=== PATIENT | male | born 1945 | race Caucasian/White ===

== ENCOUNTER → 2017-12-11 | Outpatient (CLI) | payer MEDICARE, BC ==
[~2017-12-11] MED LIST: Augmentin 875-1 EACH PO; BENA20 PO; CYCL10 PO; Cymbalta60 MG; ENABLEX PO; ESZO3 PO; HYDACE10B PO; INSUASPI SC; INSULANI SC; INSULISPEN SC; LEVFLO500 PO; ONDA4ODT MM; OXYACE7.5T PO; OXYC20ER PO; TAMS.4ER PO
== END | disposition home or self-care (01) ==
LOC: LAB 08:00 → LAB SHORT 08:00
PROVIDERS: Family Medicine
DX: E10.9 Type 1 diabetes mellitus without complications (principal)
CPT/HCPCS: 81050; 84156

== ENCOUNTER 2018-08-21 08:35 | Day surgery (SDC) | payer MEDICARE, BC ==
[2018-08-21 11:01] LABS: Performing Lab VERACYTE; Test Name FNA
== END 2018-08-21 12:00 | disposition home or self-care (01) ==
LOC: US 08:35
PROVIDERS: Family Medicine
DX: E04.1 Nontoxic single thyroid nodule (principal)
CPT/HCPCS: 10005

== ENCOUNTER 2019-04-12 22:40 | Inpatient (IN) | payer MEDICARE, BC ==
[~2019-04-12] VITALS: Ht 182.9 cm; Wt 136.0 kg
[~2019-04-12 22:40] MED LIST changes: +ASPI325 PO; +CHLO25B PO; +CLOP75 PO; -Cymbalta60 MG; +Cymbalta60 MG PO; +DARIFENACIN ER15 MG PO; +Norco 10-325 T1 EACH PO; +TRESIBA FL200 UNIT/1 SC; +TRULICITY1.5 MG/0.5 SC; +VITAMIN D-32000 UNIT PO
[2019-04-12 23:12] LABS: BASOPHILS ABSOLUTE AUTO 0.08 K/mm3 (0.00-0.23); BASOPHILS PERCENT AUTO 1 % (0-2); EOSINOPHILS ABSOLUTE AUTO 0.15 K/mm3 (0.00-0.68); EOSINOPHILS PERCENT AUTO 1 % (0-6); Hematocrit 45.3 % (37.0-53.0); Hemoglobin 14.9 g/dL (13.5-17.5); IMMATURE GRAN ABSOLUTE AUTO 0.15 K/mm3 (0.00-0.10); IMMATURE GRAN PERCENT AUTO 1 % (0-1); LYMPHOCYTES ABSOLUTE AUTO 1.48 K/mm3 (0.84-5.20); LYMPHOCYTES PERCENT AUTO 12 % (21-46); MONOCYTES ABSOLUTE AUTO 0.62 K/mm3 (0.16-1.47); MONOCYTES PERCENT AUTO 5 % (4-13); Mean Corpuscular HGB 28.8 pg (26.0-34.0); Mean Corpuscular HGB Conc 32.9 g/dL (31.5-36.5); Mean Corpuscular Volume 88 fL (80-100); Mean Platelet Volume 9.8 fL (9.1-12.4); NEUTROPHILS ABSOLUTE AUTO 10.27 K/mm3 (1.96-9.15); NEUTROPHILS PERCENT AUTO 81 % (41-73); Platelet Count 276 K/mm3 (150-400); RDW Coefficient Variation 13.2 % (11.7-14.2); RDW Standard Deviation 42.6 fL (35.1-46.3); Red Blood Cell Count 5.17 M/mm3 (4.30-5.90); White Blood Cell Count 12.75 K/mm3 (4.00-11.30)
[2019-04-12 23:37] LABS: Albumin, Blood 3.1 g/dL (3.4-5.0); Albumin/Globulin Ratio 0.8 (0.8-1.8); Bilirubin, Total 0.5 mg/dL (0.1-1.0); Bun/Creatinine Ratio 18.6 (12.0-20.0); Calcium, Blood 8.6 mg/dL (8.5-10.1); Creatinine, Blood 2.1 mg/dL (0.60-1.20); Globulin, Blood 4.1 g/dL (2.2-4.0); Potassium, Blood 4.6 mmol/L (3.5-5.5); Total Protein, Blood 7.2 g/dL (6.4-8.2); Troponin I 0.061 ng/mL (0.000-0.040)
--- NOTE | 2019-04-13 04:09 | NUR ---
SHIFT SUMMARY PATIENT WAS ADMITTED TO ROOM 338 AT 0109 FOR ISCHEMIC STROKE. HE IS ALERT AND ORIENTED WITH A PLEASANT DISPOSITION. HAS RIGHT SIDED WEAKNESS. SLEEPING WITH HOSPITAL PROVIDED CPAP WITH 2 LITERS OF OXYGEN. PATIENT HAS BEEN PLACED ON TELE. IV IN LEFT AC IS PATENT AND FLUSHES WITH NO ISSUES. BED IN LOWEST POSITION WITH WHEELS LOCKED. BED SIDE TABLE AND CALL LIGHT PLACED WITHIN REACH OF PATIENT'S NON-AFFECTED ARM. REPORT GIVEN TO ONCOMING RN.
[2019-04-13 07:07] LABS: Hematocrit 40.8 % (37.0-53.0); Hemoglobin 13.4 g/dL (13.5-17.5); Mean Corpuscular HGB 28.5 pg (26.0-34.0); Mean Corpuscular HGB Conc 32.8 g/dL (31.5-36.5); Mean Corpuscular Volume 87 fL (80-100); Mean Platelet Volume 9.9 fL (9.1-12.4); Platelet Count 252 K/mm3 (150-400); RDW Coefficient Variation 13.3 % (11.7-14.2); RDW Standard Deviation 42.1 fL (35.1-46.3); White Blood Cell Count 11.21 K/mm3 (4.00-11.30)
[2019-04-13 07:27] LABS: Troponin I 0.087 ng/mL (0.000-0.040)
[2019-04-13 07:29] LABS: Albumin, Blood 2.6 g/dL (3.4-5.0); Albumin/Globulin Ratio 0.7 (0.8-1.8); Bilirubin, Total 0.5 mg/dL (0.1-1.0); Bun/Creatinine Ratio 17.6 (12.0-20.0); Calcium, Blood 8.3 mg/dL (8.5-10.1); Creatinine, Blood 2.05 mg/dL (0.60-1.20); Globulin, Blood 3.5 g/dL (2.2-4.0); Potassium, Blood 4.4 mmol/L (3.5-5.5); Total Protein, Blood 6.1 g/dL (6.4-8.2)
[2019-04-13 07:40] LABS: Creatine Kinase MB 6.4 ng/mL (0.0-3.6); Creatine Kinase MB Index 1.9 (0.0-4.0)
--- NOTE | 2019-04-13 16:03 | NUR ---
ALERT. ORIENTED. COOPERATIVE. TELE ON. UNLABORED RESPIRATIONS. IV ROTATED AND IS PATENT. IS RIGHT SIDE DOMINANT. HAS DIFFICULTY HOLDING UTENSIL IN RT HAND. RT HAND DRIFT W/RT ARM WEAKER THAN LEFT. RT PUSH/PULL LOWER EXTREMITY WEAKER THAN LEFT. FACE SYMMETRICAL W/NO OBVIOUS DROOP. NO GARBLED OR SLURRED SPEECH. HAD MRI. IS 2 PERSON ASSIST WHEN GETTING UP HE CAN NOT CONTROL RT SIDE.TELE IN PLACE. BED IN LOW POSITION. CALL LIGHT AND PERSONAL BELONGINGS WITHIN REACH. [facility]
[2019-04-13 16:56] LABS: Troponin I 0.075 ng/mL (0.000-0.040)
[2019-04-13 17:12] LABS: Creatine Kinase MB 6.9 ng/mL (0.0-3.6)
[2019-04-13 17:13] LABS: Creatine Kinase MB Index 1.3 (0.0-4.0)
--- NOTE | 2019-04-14 03:20 | NUR ---
Pt with CVA and right sided weakness sleeping with few interruptions. Voiced no feeling in right side. Right side continues to display weakness as compared to that of the left. C-pap at noct, sats in the 's. Med tele sinus with BBB. Affect cheerful when spoken to. Call light in reach.
--- NOTE | 2019-04-14 03:44 | NUR ---
certified composites technician called re HR in the 50's, pt assessed. Asymptomatic. Pt stated HR 57, "thats normal for me". Will continue to monitor.
--- NOTE | 2019-04-14 15:25 | NUR ---
ALERT. ORIENTED. MAX 2 PERSON ASSIST FOR AMBULATION. TIRES EASILY. NEEDS LOTS OF ENCOURAGEMENT. GIVEN COBAN WRAPPED WASHCLOTH TO SQUEEZE WITH RT HAND. UP IN CHAIR FOR MEALS. BED BATH IN W/C W/PATIENT ASSISTANCE. MOVED TO ROOM WITH A SMOOTH FLOOR IN THE SHOWER SO HE CAN START TAKING SHOWERS. TELE ON. N/T W/WEAKNESS RT SIDE. BED IN LOW POSITION. CALL LIGHT AND PERSONAL ITEMS WITHIN REACH OF LEFT SIDE. [facility]
--- NOTE | 2019-04-15 03:42 | NUR ---
Remains alert and oriented. Right side continues to be weaker than that of left side. but seems less weaker than noted 24 hrs ago. Denies pain when asked. Has been resting quietly at intervals this shift. Call light in reach. Will continue to monitor.
--- NOTE | 2019-04-15 15:20 | NUR ---
HE HAS BEEN ON THE PHONE ON AND OFF TODAY. HE HAS EATEN WELL. WE OPEN AND SET THINGS UP FOR HIM BECAUSE OF THE DIFFICULTY WITH DEXTERITY IN HIS RH. PT HAS WORKED WITH HIM. SHE SAID HE IS IMPULSIVE. ELISA BUTLER HELPED HIM WITH HIS CHRONIC PAINS IN HIS BACK, R HIP AND BOTH KNEES. MSG LEFT WITH HIS SPA ASSISTANT MANAGER THAT HE PREFERS OVER [place].
--- NOTE | 2019-04-15 18:08 | NUR ---
HE HAS VISITORS AND PHONE CALLS. HIS FAMILY BROUGHT HIM IN [facility]. NO CHANGE IN HIS NEURO ASSESSMENT THROUGHOUT THE DAY. HE WORKED WITH PT AND OT. HE DANGLED AND STOOD. NO COMPLAINTS EXCEPT THAT HE HAD A STROKE. HE REALIZES THIS IS A LIFE CHANGER FOR NOW.
--- NOTE | 2019-04-16 01:37 | NUR ---
Physical activity encouraged to increase pt ability with right side weakness. Noted some increased strength of right hand with director patient accounting at HS. Resting quietly with few interruptions since HS. C-Pap in use. Call light in reach.
--- NOTE | 2019-04-16 04:21 | NUR ---
BP 185/84. PRN of Apresoline parameters state to be given if SBP is 200 or more. Asymptomatic. Will continue to monitor. Call light in reach.
[2019-04-16 05:24] LABS: Hematocrit 39.8 % (37.0-53.0); Hemoglobin 12.8 g/dL (13.5-17.5); Mean Corpuscular HGB 28.7 pg (26.0-34.0); Mean Corpuscular HGB Conc 32.2 g/dL (31.5-36.5); Mean Corpuscular Volume 89 fL (80-100); Mean Platelet Volume 10.2 fL (9.1-12.4); Platelet Count 214 K/mm3 (150-400); RDW Standard Deviation 42.6 fL (35.1-46.3); Red Blood Cell Count 4.46 M/mm3 (4.30-5.90); White Blood Cell Count 8.69 K/mm3 (4.00-11.30)
[2019-04-16 05:46] LABS: Bun/Creatinine Ratio 16.7 (12.0-20.0); Calcium, Blood 8.1 mg/dL (8.5-10.1); Creatinine, Blood 3.84 mg/dL (0.60-1.20); Potassium, Blood 5.8 mmol/L (3.5-5.5)
[2019-04-16 14:31] LABS: Albumin, Blood 2.8 g/dL (3.4-5.0); Anion Gap 7 mmol/L (6-16); Blood Urea Nitrogen 68 mg/dL (8-24); Bun/Creatinine Ratio 22.5 (12.0-20.0); CO2, Blood 24 mmol/L (21-32); Calcium, Blood 8.3 mg/dL (8.5-10.1); Chloride, Blood 107 mmol/L (98-108); Creatinine, Blood 3.02 mg/dL (0.60-1.20); Glomerular Filtration Rate 22 (60-); Glucose, Blood 237 mg/dL (70-99); Phosphorus, Blood 4.4 mg/dL (2.5-4.9); Potassium, Blood 5.8 mmol/L (3.5-5.5); Sodium, Blood 138 mmol/L (136-145)
--- NOTE | 2019-04-16 17:43 | NUR ---
PATIENT A/OX4, UP WITH 2 ASSIST TO W/C. R SIDED WEAKNESS, NO DROOP OR CHANGES IN SPEECH. K+ 5.8 TODAY, PATIENT GIVEN KAYEXALATE. B/P MEDICATIONS ADJUSTED TODAY. PATIENT ON TELE, SR WITH A BBB IN THE 60'S. CPAP AT [facility], OTHERWISE RA. PATIENT USING A URINAL TO VOID. NORCO SCHEDULED BID, AND PATIENT REPORTS GOOD PAIN CONTROL. ACHS BLOOD SUGARS, PATIENT TOLERATING ADA DIET. CALM AND COOPERATIVE WITH CARE, CALLS APPROPRIATELY FOR ASSISTANCE. PLAN IS TO D/C TO [facility], WEEKEND D/C PACKET ON CHART.
--- NOTE | 2019-04-16 22:43 | NUR ---
MEDICATION: HS DOSE OF LOPRESSOR WAS HELD DUE TO HR OF 56, REPORTED BY PCU BANKING SERVICES CLERK. BP IS 177/76, NO COMPLAINTS OF HEADACHE OR BLURRED VISION. PATIENT IS ASYMPTOMATIC.
[2019-04-17 05:20] LABS: Albumin, Blood 2.6 g/dL (3.4-5.0); Anion Gap 7 mmol/L (6-16); Blood Urea Nitrogen 77 mg/dL (8-24); Bun/Creatinine Ratio 23.6 (12.0-20.0); CHOL/HDL RATIO 3.9; CO2, Blood 23 mmol/L (21-32); Calcium, Blood 8.1 mg/dL (8.5-10.1); Chloride, Blood 111 mmol/L (98-108); Cholesterol 126 mg/dL (50-200); Creatinine, Blood 3.26 mg/dL (0.60-1.20); Glomerular Filtration Rate 20 (60-); Glucose, Blood 174 mg/dL (70-99); HDL Cholesterol 32 mg/dL (>39); LDL/HDL RATIO 1.5; Low Density Lipoprotein Chol 47 mg/dL (0-110); Phosphorus, Blood 4.6 mg/dL (2.5-4.9); Potassium, Blood 5.4 mmol/L (3.5-5.5); Sodium, Blood 141 mmol/L (136-145); Triglycerides 236 mg/dL (30-160); Very Low Density Lipoprot Chol 47 mg/dL (6-32)
--- NOTE | 2019-04-17 07:16 | NUR ---
SHIFT SUMMARY: PATIENT IS A&OX4, UP TO THE BATHROOM WITH A HEAVY ASSIST OF TWO, GAIT BELT& WALKER TO STAND AND PIVOT TO THE WHEELCHAIR. PATIENT HAD A LARGE BM IN BATHROOM. BP IS ELEVATED THIS AM 200/83 WITH PULSE OF 52, PATIENT WAS BRADICARDIC ALL NIGHT, PATIENT IS ASYMPTOMATIC. DR NOLAN WAS NOTIFIED OF BP AND ORDER TO GIVE AM BP MEDS NOW, HYDRALAZINE AND NORVASC WERE GIVEN. PATIENT IS COMPLIANT WITH CPAP DURING SLEEP, BED ALSRM WAS ON FOR SAFETY.
--- NOTE | 2019-04-17 18:29 | NUR ---
PT AOX4 AND COOPERATIVE OF ALL CARE. PT HAS BEEN UP FOR SOME MEALS AND IS A HEAVY TWO PERSON TRANSFER DUE TO L SIDED WEAKNESS. PT HAS DENIES PAIN NO DISTRESS NOTED.
--- NOTE | 2019-04-18 06:37 | NUR ---
SHIFT SUMMARY: BP CONTINUES TO BE ELEVATED BUT STABLE, SEE VS CHARTING. PATIENT REMAINS ASYMPTOMATIC. RIGHT SIDED WEAKNESS PERSISTS. CHRONIC PAIN IS WELL CONTROLED WITH HYDROCODONE. PATIENT REPORTS NOT SLEEPING WELL THIS SHIFT.
[2019-04-18 08:48] LABS: Albumin, Blood 2.9 g/dL (3.4-5.0); Anion Gap 5 mmol/L (6-16); Blood Urea Nitrogen 76 mg/dL (8-24); Bun/Creatinine Ratio 27.2 (12.0-20.0); CO2, Blood 28 mmol/L (21-32); Calcium, Blood 8.6 mg/dL (8.5-10.1); Chloride, Blood 108 mmol/L (98-108); Creatinine, Blood 2.79 mg/dL (0.60-1.20); Glomerular Filtration Rate 24 (60-); Glucose, Blood 192 mg/dL (70-99); Phosphorus, Blood 4.2 mg/dL (2.5-4.9); Potassium, Blood 5.3 mmol/L (3.5-5.5); Sodium, Blood 141 mmol/L (136-145)
--- NOTE | 2019-04-18 16:44 | NUR ---
PT HAD VITALS RECHECKED AT 1530 BP WAS 174/73 P 63.
--- NOTE | 2019-04-18 19:06 | NUR ---
NOTIFIED DR ROBLES 171 OF PT'S BP STAYING HIGH. PT HAD BP AT 1530 TAKEN IN ROOM OF 174/73 HR 63. THEN 1618 PT RECIEVED HYDRALAZINE AND BP RECHECKED AT 1708. BP WAS 184/[address] ROBLES SAID TO MONITOR PT FOR NOW ANOTHER DOSE OF HYDRALAZINE WAS DUE AT 2100. [facility] NURSE MADE AWARE.
[2019-04-19 07:34] LABS: Albumin, Blood 2.7 g/dL (3.4-5.0); Anion Gap 4 mmol/L (6-16); Blood Urea Nitrogen 72 mg/dL (8-24); Bun/Creatinine Ratio 28.9 (12.0-20.0); CO2, Blood 28 mmol/L (21-32); Calcium, Blood 8.5 mg/dL (8.5-10.1); Chloride, Blood 108 mmol/L (98-108); Creatinine, Blood 2.49 mg/dL (0.60-1.20); Glomerular Filtration Rate 27 (60-); Glucose, Blood 193 mg/dL (70-99); Phosphorus, Blood 4.7 mg/dL (2.5-4.9); Sodium, Blood 140 mmol/L (136-145)
--- NOTE | 2019-04-19 07:38 | NUR ---
SHIFT SUMMARY: PATIENT CONTINUES TO HAVE RIGHT SIDED WEAKNESS, UPPER AND LOWER EXTREMITIES. CAN AT TIMES BECOME FRUSTRATED WITH LIMITATIONS IN MOBILITY. BP IS ELVATED BUT STABLE, PATIENT IS ASYMPTOMATIC. BLOOD GLUCOSE WAS 275 AT HS AND PATIENT WAS COVERED PER SCALE. NO EVENTS ON TELEMETRY THIS SHIFT.
[2019-04-19] MEDS ORDERED: AMLO10 PO (09:18)
[2019-04-19] MEDS ORDERED: Lipitor20 MG PO (09:19)
[2019-04-19] MEDS ORDERED: GUAI600T33 PO (09:19)
[2019-04-19] MEDS ORDERED: CLARITIN10 MG PO (09:20)
[2019-04-19] MEDS ORDERED: LOSA25 PO (09:20)
[2019-04-19] MEDS ORDERED: HYDRA25 PO (09:20)
[2019-04-19] MEDS ORDERED: Pedi-Dri 100,0060 GM TOP (09:21)
[2019-04-19] MEDS ORDERED: OCEAN104 ML (09:23)
[2019-04-19] MEDS ORDERED: DOCU100 PO (09:23)
--- NOTE | 2019-04-19 13:33 | NUR ---
PT TRANSFERED TO [facility] AT 1330 VIA WHEELCHAIR. NO DISTRESS NOTED. LAST BP WAS 156/66 HR 60 MUCH IMPROVED COMPARED TO HIS PRIOR BPs. REPORT CALLED TO RN AT [facility] PRIOR TO TRANSPORT. PACKET GIVEN TO BLOOD BANK LABORATORY PROFESSIONAL.
--- NOTE | 2019-04-19 13:37 | NUR ---
THIS IS A LATE SHIFT SUMMARY NOTE FOR 04/19/19/ PT WAS AOX4 AND COOPERATIVE OF CARE. PT HAD HIGH BP AND WAS TREATED PER EMAR. DR ROBLES WAS MADE AWARE THROUGH THE DAY AND MADE CHANGED TO EMAR. PT WAS A HEAVY TWO PERSON ASSIST HE STILL HAS HEAVY DEFICITS ON HIS R SIDE AND ANY MOVEMENT TAKES EXTREME EFFORT FOR HIM. PT GET A LITTLE FRUSTRATED WITH HIMSELF. PT PLEASANT WITH ALL CARE. CONTINUED TO MONITOR UNTIL SHIFT CHANGE.
== END 2019-04-19 13:27 | disposition home or self-care (01) | DRG 65 ==
LOC: ER 22:40 → MEDS 22:41 → ER 22:41 → MEDS 22:41 → ENPENDDIS 04-19 10:46 → MEDS 04-19 13:27
PROVIDERS: Emergency Medicine; Internal Medicine; ADMIT Internal Medicine
DX: I63.81 Other cerebral infarction due to occlusion or stenosis of small artery (principal); N25.81 Secondary hyperparathyroidism of renal origin; N17.9 Acute kidney failure, unspecified; G47.33 Obstructive sleep apnea (adult) (pediatric); N40.1 Benign prostatic hyperplasia with lower urinary tract symptoms; N39.41 Urge incontinence; R20.0 Anesthesia of skin; N18.3 Chronic kidney disease, stage 3 (moderate); E11.22 Type 2 diabetes mellitus with diabetic chronic kidney disease; I12.9 Hypertensive chronic kidney disease with stage 1 through stage 4 chronic kidney disease, or unspecified chronic kidney disease; E87.5 Hyperkalemia; E66.9 Obesity, unspecified; Z68.39 Body mass index [BMI] 39.0-39.9, adult; E78.5 Hyperlipidemia, unspecified; Z79.84 Long term (current) use of oral hypoglycemic drugs
CPT/HCPCS: 36415; 70450; 70551; 80048; 80053; 80061; 80069; 82550; 82553; 82947; 83036; 84484; 85025; 85027; 90686; 93005; 93010; 93306; 93880; 94660; 94762; 96374; 97110; 97112; 97116; 97162; 97166; 97530; 97535; 99285-25; J0360; J1650; J2405; J7120